=== PATIENT | male | born 1955 | race Two or more races ===

== ENCOUNTER 2021-02-20 11:33 | Emergency (ER) | payer BC, MEDICAID ==
[~2021-02-20] VITALS: Ht 190.5 cm; Wt 72.6 kg
[2021-02-20] MEDS ORDERED: ENALAPRIL MALEATE 2.5 MG TAB PO ONE (13:45)
[2021-02-20] MEDS ORDERED: HYDROcodone-ACET 5/325MG TAB PO ONE (13:45)
[2021-02-20 15:31] VITALS: BP 154/110
[2021-02-20] MEDS ORDERED: ACET325T10 PO (15:57)
[2021-02-20] MEDS ORDERED: HYDR-4902 PO (15:57)
== END 2021-02-20 16:53 | disposition home or self-care (01) ==
LOC: ER 11:33
DX: S52.121A Displaced fracture of head of right radius, initial encounter for closed fracture (principal); I10 Essential (primary) hypertension; K21.9 Gastro-esophageal reflux disease without esophagitis; F17.210 Nicotine dependence, cigarettes, uncomplicated; Z79.899 Other long term (current) drug therapy; W18.39XA Other fall on same level, initial encounter; Y93.89 Activity, other specified; Y92.89 Other specified places as the place of occurrence of the external cause; Y99.8 Other external cause status
CPT/HCPCS: 73030; 73080